=== PATIENT | female | born 1990 | race Caucasian/White ===

== ENCOUNTER 2025-05-30 10:33 | Emergency (ER) | payer MEDICAID, SELFPAY ==
[2025-05-30 10:37] VITALS: BP 124/84; PULSE 65; RESP 20; TEMP 36.6; O2SAT 98
--- NOTE | 2025-05-30 10:47 | W.ED.GENAD ---
Discharge Plan Disposition Patient Disposition: Home Discharge Details Clinical Impression: Right shoulder strain Primary Care Provider: Jaclyn Martell ED Provider: Trenton Morrow Home Meds and New Rx's Prescriptions: Continued acetaminophen [Mapap Extra Strength] 500 MG tablet 1,000 mg PO Q6H Discharge Instructions Instructions: Using Cold for Pain Additional Instructions: You were seen in the emergency department for your right shoulder pain. As we discussed, your x-rays showed no sign of a broken bones. Please return to the emergency department if you develop any color changes in your hand. Please begin the pendulum activities that we discussed tomorrow. A referral has been placed to orthopedic team if your symptoms do not improve. For your pain please take medications as follows: 1. Take acetaminophen (Tylenol), 1,000 mg (two 500 mg tabs) every 6 hours [2. Take ibuprofen (Advil), 400 mg every 6 hours.] You may also ice your shoulder at ointment on 20 minutes off. Discharge Data Discharge Date/Time-TO BE ENTERED AT DEPARTURE: 05/30/25 13:10 HPI General Date/Time Provider Initiated Documentation: 05/30/25 10:47. HPI Narrative: MDM This is an uncomfortable appearing [id number] 35-year-old female with right sided upper extremity pain for which she will undergo plain films. My suspicion is relatively low that she has any acute osseous abnormalities given her mechanism of injury. She has equal breath sounds and no chest pain nor hypoxia so I am not suspicious for pneumothorax and I do not feel patient requires a chest x-ray. She does not have any significant head strike to suggest benefit from CT head. No midline cervical spinal tenderness to suggest increased risk for cervical spinal fracture. No preceding chest pain to suggest ACS. No shortness of breath to suggest preceding PE. Patient took prehospital ibuprofen so we will treat with acetaminophen and reassess following radiographs. 12:23 PM I met with the patient. Her x-rays were all unremarkable. We discussed that she most likely sprained her right shoulder. We also discussed that patient may have damaged one of the ligaments in her right upper extremity. We discussed pendulum activities to preserve her range of motion. I will provide her with a sling for today before she initiates pendulum activities tomorrow. I advised ice. I will have a healthy and coordinator Jeanne arrange the patient to be seen in follow-up by orthopedics. We discussed that if her symptoms improve with conservative management that she would not require follow-up. We discussed that she should return to the ED if she develops any weakness in her hands or color changes in her right hand. We discussed oral dosing of nonnarcotic analgesia. She was discharged with an empiric trial of expectant management. HPI This is a [id number] patient presenting with right shoulder pain. The patient experienced a fall on wet steps approximately 45 minutes prior to the visit. During the fall, she attempted to brace herself against an unfinished wall, resulting in significant discomfort in her right shoulder, which radiated down to her elbow and up into her neck. She also had a minor head impact but did not lose consciousness. The patient reports no symptoms of nausea or vomiting. She has been able to ambulate since the incident but has refrained from using her hand due to associated muscle movement and pain. She reports no back pain and attributes her neck discomfort to her shoulder injury. Exam General: Well-appearing in no acute distress speaking in complete sentences. Head: Normocephalic, atraumatic. Eye: Extraocular eye movements intact. No conjunctival injection. No scleral icterus. Ear, nose, mouth, throat: Grossly normal inspection. Normal voice, handling secretions normally. Neck: Trachea midline. Cardiovascular: Well-perfused distal extremities. Respiratory: Nonlabored respiration. Equal breath sounds bilaterally. Gastrointestinal: Nondistended abdomen. Musculoskeletal: Right upper extremity no obvious deformities. Right hand warm well-perfused intact sensation and motor function across the radial median, and ulnar nerve distributions. 2+ radial pulse. Patient has diffuse tenderness to her right shoulder. She is able to touch her right hand to her contralateral left shoulder. She has no clavicular tenderness. She can AB duct her right arm approximately 90 degrees. She can flex her right arm at the shoulder approximately 90 degrees. She has difficulty extending her right arm at the shoulder. Provocative testing was not performed. Patient has tenderness throughout her humerus. No lacerations nor ecchymoses. Patient has right elbow tenderness. No signs of trauma. Given diffuse pain range of motion and right elbow deferred. Skin: Normal for age and race, grossly normal temperature and turgor. No acute rash. Neurologic: Alert and appropriate, no apparent acute deficits. GCS 15. Psychiatric: Mood and manner are appropriate. Grooming and personal hygiene are appropriate. Related Data Home Medications ?Medication ?Instructions ?Recorded ?Confirmed acetaminophen 500 mg tablet (Mapap 1,000 mg PO Q6H 03/15/13 05/30/25 Extra Strength) Allergies Allergy/AdvReac Type Severity Reaction Status Date / Time No Known Allergies Allergy Unverified 05/30/25 10:41 General Stated Complaint: Orthopedic BRANDEE: 4 Course Vital Signs Vital signs: Vital Signs Temperature 36.6 C 05/30/25 10:37 Pulse 65 05/30/25 10:37 Respiratory Rate 20 05/30/25 10:37 Blood Pressure 124/84 05/30/25 10:37 Pulse Oximetry 98 05/30/25 10:37 Temperature 36.6 C 05/30/25 10:37 Pulse 65 05/30/25 10:37 Respiratory Rate 20 05/30/25 10:37 Blood Pressure 124/84 05/30/25 10:37 Blood Pressure Position Sitting 05/30/25 10:37 Pulse Oximetry 98 05/30/25 10:37 Oxygen Delivery Method Room Air 05/30/25 10:37 Oxygen Flow Rate 0 05/30/25 10:37 PFSH All Active Problems (Updated 05/30/25 @ 12:30 by Trenton Morrow MD) Right shoulder strain (Acute) Social History Smoking/Tobacco Use Status: Current every day Smoking risk assessment performed?: Yes Drug use: Daily
--- NOTE | 2025-05-30 11:00 | DI.RAD_ITS ---
Exam(s) XR ELBOW RT COMPLETE EXAM: XR ELBOW RT COMPLETE CLINICAL HISTORY: Right elbow painful. TECHNIQUE: 2D digital imaging was performed of the left elbow. Three images were obtained. AP, lateral and oblique views were obtained. COMPARISON: No exams were available for comparison FINDINGS: BONES: No acute fracture is present. No bony destructive lesion is seen. JOINTS: The elbow is normally aligned. No joint effusion is seen. SOFT TISSUE: Normal. IMPRESSION: Unremarkable radiographs of the right elbow. DATA REPOSITORY: RADIATION DOSE DELIVERED:
--- NOTE | 2025-05-30 11:00 | DI.RAD_ITS ---
Exam(s) XR SCAPULA RT EXAM: XR SCAPULA RT CLINICAL HISTORY: Right scapular pain. TECHNIQUE: 2D digital imaging was performed. Two images were obtained. COMPARISON: No exams were available for comparison FINDINGS: BONES: No acute fracture is present. No bony destructive lesion is seen. JOINTS: No dislocation present. SOFT TISSUE: Normal. IMPRESSION: Unremarkable radiographs of the right scapula. DATA REPOSITORY: RADIATION DOSE DELIVERED:
--- NOTE | 2025-05-30 11:00 | DI.RAD_ITS ---
Exam(s) XR SHOULDER RT COMPLETE 2+V EXAM: XR SHOULDER RT COMPLETE 2+V CLINICAL HISTORY: right shoulder pain. TECHNIQUE: 2D digital imaging was performed of the right shoulder. Four images were obtained. AP, Grashey, Y-view and axillary views were obtained. COMPARISON: No exams were available for comparison FINDINGS: BONES: No acute fracture is present. No bony destructive lesion is seen. JOINTS: No dislocation present. SOFT TISSUE: Normal. IMPRESSION: Unremarkable radiographs of the right shoulder. DATA REPOSITORY: RADIATION DOSE DELIVERED:
--- NOTE | 2025-05-30 11:00 | DI.RAD_ITS ---
Exam(s) XR HUMERUS RT EXAM: XR HUMERUS RT CLINICAL HISTORY: Right humerus pain. TECHNIQUE: 2D digital imaging was performed of the right humerus. Two images were obtained. AP and lateral views were obtained. COMPARISON: No exams were available for comparison FINDINGS: BONES: No acute fracture is present. No bony destructive lesion is seen. Visualized portion of elbow and shoulder joints are unremarkable. SOFT TISSUE: Normal. IMPRESSION: Unremarkable radiographs of the right humerus. DATA REPOSITORY: RADIATION DOSE DELIVERED:
[2025-05-30] MEDS: Acetaminophen 500 MG TAB 1000 MG PO (11:17)
[2025-05-30] MEDS: Lidocaine 5% Patch 1 PATCH TP (12:54)
[2025-05-30 12:56] VITALS: BP 130/56; PULSE 64; RESP 15; O2SAT 95
== END 2025-05-30 13:10 | disposition home or self-care (01) ==
PROVIDERS: Emergency Provider Emergency Medicine; PCP Physician Assistant Medical
DX: S46.911A Strain of unspecified muscle, fascia and tendon at shoulder and upper arm level, right arm, initial encounter (principal); W01.0XXA Fall on same level from slipping, tripping and stumbling without subsequent striking against object, initial encounter
CPT/HCPCS: 99283; 99284; 73010; 73030; 73060; 73080